=== PATIENT | male | born 1975 | race Caucasian/White ===

== ENCOUNTER 2025-05-29 09:01 | Emergency (ER) | payer BC, SELFPAY ==
[2025-05-29 09:03] VITALS: BP 160/103
[2025-05-29 10:00] VITALS: BP 143/100
[2025-05-29] MEDS: TORADOL 15 MG IV (10:13)
[2025-05-29] MEDS: NSS 1000 IV (10:13)
[2025-05-29 10:19] VITALS: BMI 26.8
[2025-05-29] MEDS: ZOFRAN 4 MG IV (10:23)
--- NOTE | 2025-05-29 10:25 | ED.GENMED ---
History of Present Illness
General
Chief Complaint: Fever
Time Seen by Provider: 05/29/25 09:46
History of Present Illness
History of Present Illness:
49-year-old male with history of primary sclerosing cholangitis and ulcerative colitis on mesalamine presenting to the emergency department for multiple complaints. He reports about a week ago he started to have a left upper tooth pain. He went to
urgent care, was prescribed amoxicillin. 2 evenings ago he did see a dentist, had x-rays that confirmed an infection and was told to follow-up with another dentist. However since yesterday has now been having subjective fevers, nausea, dry
heaving, upper abdominal pain. Reports complex history of primary sclerosing cholangitis, with indwelling liver stent, last replaced a month ago. Notes that he gets a stent replaced every 3 months. Denies known sick contacts. Denies difficulty
breathing or present chest discomfort. Denies diarrhea. He follows at [facility] for hepatology, and [facility] for GI. Denies additional acute medical complaints
Past History
Past History
ED Past Medical History: Other (Ulcerative colitis, primary sclerosing cholangitis) and Other (cholangitis)
ED Past Surgical History: None
Social History
Tobacco: Non-smoker
Alcohol: None
Personal:
Living: with family
Employment: Employed
Phy Exam
Physical Exam
Physical Exam:
General: Well-appearing, no clinical signs of dehydration, nontoxic and in no acute distress
HEENT: protecting airway, mild swelling to the left face, lateral to the teeth. Poor dentition to tooth #15 and 16 with some mild fluctuance at the external gumline and pain on palpation. No trismus.
Neck: appears supple
CV: Normal heart rate, regular rhythm
Resp: No accessory muscle use, no increased work of breathing, lungs clear to auscultation bilaterally
Abd: Soft and non-distended, generalized tenderness to the upper abdomen without rebound or guarding
Extremities: No deformities, no swelling
Neuro: alert, no focal neurologic deficit
: deferred
Rectal: deferred
Psych: Normal affect
Skin: Intact
Course
Orders/Labs/Results
Orders:
Orders
05/29/25 09:04
Electrocardiogram (*1) Urgent
Reason for Study: Chest Pain
EKG- Treatment ONCE
05/29/25 10:08
0.9% Sodium Chloride 1000 ml [Nss] 1,000 ml IV BOLUS
Ketorolac [Toradol] 15 mg IV NOW STA
05/29/25 10:09
CT Abd/pelvis W Iv Cont Urgent
Comment:
Reason For Exam: generalized pain, hx PSC w/gastri stent
05/29/25 10:12
Ondansetron Injectable [Zofran] 4 mg IV NOW STA
05/29/25 10:13
Complete Blood Count/With Diff Urgent
Comprehensive Metabolic Panel Urgent
Lipase Urgent
05/29/25 13:10
Clindamycin HCl [Cleocin] 600 mg PO ONCE ONE
Abnormal Lab Results
05/29/25
10:13
MPV 10.5 H fL
(7.4-10.4)
Absolute Monos (auto) 1.6 H 10^3/uL
(0.1-0.6)
Monocytes % 17.0 H %
(1.7-9.3)
Creatinine 0.6 L mg/dL
(0.7-1.3)
Glucose 121 H mg/dl
(70-99)
Total Bilirubin 2.3 H mg/dl
(0.2-1.3)
AST 82 H U/L
(17-59)
ALT 127 H U/L
(0-50)
Alkaline Phosphatase 563 H U/L
(38-126)
05/29/25 10:13
05/29/25 10:13
Vital Signs
Initial and Last Documented VS:
Initial Vital Signs
Temp Pulse Resp BP Pulse Ox
97.5 F 106 16 160/103 97
05/29/25 09:03 05/29/25 09:03 05/29/25 09:03 05/29/25 09:03 05/29/25 09:03
Last Documented Vital Signs
Temp Pulse Resp BP Pulse Ox
97.5 F 65 15 139/96 92
05/29/25 09:03 05/29/25 11:00 05/29/25 11:00 05/29/25 11:00 05/29/25 11:00
Procedures
Incision/Drainage/Joint Aspiration
L-upper tooth:
Anethesia: 1% Lidocaine
Type of procedure: aspiration
Nature of site: abscess
Description of abscess: less than 3cm
Loculations broken up: Yes
How much fluid was obtained?: small amount
Fluid description: purulent
Treatment: left open for drainage
MDM/Problems Addressed
MDM/Problems Addressed:
49-year-old male with history of primary sclerosing cholangitis and ulcerative colitis on mesalamine presenting for dental pain and abdominal pain. Vital signs on arrival are significant for hypertension.
On exam, patient is resting comfortably, no acute distress, nontoxic. Regarding patient's dental pain, do suspect apical abscess, with swelling to the face, tenderness to tooth #15 and 16 with scant amount of fluctuance on the lateral gumline.
Will try to do local needle aspiration. Otherwise protecting airway, no airway compromise, no oropharyngeal swelling. Patient is currently afebrile. He did not take any Tylenol or Motrin prior to arrival, no antipyretics. Heart rate has resolved
without intervention. Without concern for SIRS. Regarding abdominal discomfort, suspect secondary to underlying dental infection, possibly from amoxicillin. Generalized tenderness to the upper abdomen. Known complex history, so for this reason
we will obtain CT abdomen and pelvis to rule out additional acute pathology. Will also obtain lipase and liver enzymes. Therapeutics patient started on IV fluids, Toradol for pain and Zofran for nausea
13:00 -patient's labs are unremarkable. He does have slight elevation of his AST and ALT, however on review of labs from [facility] on 04/22, appears stable. T. bili is also stable from 04/22. No concern for acute gastric pathology.
CT without acute intra-abdominal abnormality. Continue to suspect the patient symptoms are from ongoing tooth infection. Bedside incision and drainage with success of purulence. Will change patient's antibiotic to clindamycin with plan for
outpatient oral surgical follow-up. Strict return precautions communicated and patient verbalized understanding
*Pulse Oximetry
SaO2: 97
Oxygen Mode of Delivery: Room air
Patient hypoxic: no
*Critical Care Note
Total Time (30-74mins, 75-104mins- exclusive of procedures): Not Applicable
ED Attending Note
-
Portions of this chart may have been created with voice recognition software.� Occasional wrong word or��sound alike� substitutions may have occurred due to the inherent limitations of voice recognition software.
Discharge Plan
Departure
Patient Disposition: Home (Routine Discharge)
Date of Disposition: 05/29/25
Time of Disposition: :11
Patient with high blood pressure during this ER visit?: Yes
Condition: Good
Discharge Problem:
Dental infection, Apical abscess
Instructions: Dental abscess - ED discharge instructions
Prescriptions:
New
clindamycin HCl [Cleocin HCl] 150 mg capsule
450 mg PO TID 7 Days Qty: 63 0RF
tramadol 50 mg tablet
50 mg PO BID PRN (Reason: Pain) Qty: 10 0RF
No Action
ursodiol 300 MG capsule
300 mg PO QPM
ursodiol 300 MG capsule
600 mg PO DAILY
mesalamine 1.2 GM tablet,delayed release (DR/EC)
1.2 gm PO BID
Referrals:
Jesse Baker I., [Family Provider, Internal Medicine]
Geovanny Renner MD, DDS [Active, Oral Surgery]
Activity Restrictions/Additional Instructions:
You were seen in the emergency department for swelling and pain to your left upper tooth
You were found to have a dental infection and started on clindamycin. You will need to follow-up with an oral surgeon for tooth extraction.
Please follow-up closely with your primary care physician.
Return to the emergency department for any worsening of your symptoms, or any development of chest pain, difficulty breathing, abdominal pain with persistent vomiting and inability to tolerate food or liquid by mouth (concern for dehydration),
weakness, headache or confusion, fever greater than 100.4, or any additional symptoms that are concerning to you.
Thank you for choosing [facility].
Interventions
Interventions:
*Risk Screen - Suicide Last Done: 05/29/25 10:24
ED- Neurological Assessment Last Done: 05/29/25 10:24
ED-Skin Assessment Last Done: 05/29/25 10:24
Discharge Date and Time
Print Language: KOREAN
[2025-05-29 10:26] LABS: Hematocrit 43.6 % (39.0-52.0); Hemoglobin 15.8 g/dL (13.0-18.0); Mean Corp Hgb Conc. 36.2 g/dL (33.0-37.0); Mean Corpuscular Volume 83.7 fL (80.0-94.0); Nucleated Red Blood Cells % 0 % (-); Platelet Count 242 10^3/uL (130-400); Red Cell Dist. Width 13.2 % (11.5-14.5)
[2025-05-29 10:41] LABS: ALT (SGPT) 127 U/L (0-50); AST (SGOT) 82 U/L (17-59); Albumin 4.4 g/dl (3.5-5.0); Alkaline Phosphatase 563 U/L (38-126); Blood Urea Nitrogen 11 mg/dl (9-20); Calcium 9.1 mg/dl (8.4-10.2); Carbon Dioxide 27 mmol/L (22-30); Chloride 103 mmol/L (98-107); Estimated Creatinine Clearance > 125 ml/min; Glucose 121 mg/dl (70-99); Lipase 44 U/L (23-300); Potassium 3.7 mmol/L (3.5-5.1); Sodium 138 mmol/L (135-145); Total Protein 7.6 g/dl (6.3-8.2); eGFR > 60.00
[2025-05-29 11:00] VITALS: BP 139/96
[2025-05-29] MEDS: CLEOCIN 600 MG PO (13:25)
== END 2025-05-29 14:00 | disposition home or self-care (01) ==
LOC: EMR 09:01
PROVIDERS: EMERGENCY PHYSICIAN Student in an Organized Health Care Education/Training Program; FAMILY PHYSICIAN Internal Medicine
DX: K04.7 Periapical abscess without sinus (principal); I10 Essential (primary) hypertension; K83.01 Primary sclerosing cholangitis; K51.90 Ulcerative colitis, unspecified, without complications
CPT/HCPCS: 99284; 41800; 96374; 96375; 96361; 74177; 80053; 83690; 85025; 93005; Q9967

== ENCOUNTER 2025-05-31 11:51 | Inpatient (IN) | payer BC, SELFPAY ==
[2025-05-31] VITALS (12 sets, daily range): BP systolic 136–165; BP diastolic 83–111; BMI 27.4; BMI 26.3; BMI 26.5
--- NOTE | 2025-05-31 05:52 | ED.GENMED ---
History of Present Illness
General
Chief Complaint: Abdominal Symptoms
Time Seen by Provider: 05/31/25 05:52
History of Present Illness
History of Present Illness:
PAST MEDICAL HISTORY AND REVIEW OF OLD RECORDS
- The patient has a history of primary sclerosing cholangitis and ulcerative colitis. He was seen here 2 days ago with multiple complaints including dental pain as well as abdominal pain. The patient was admitted to the hospital in 2019 with a
flare of primary sclerosing cholangitis at that time had a total bili of 9.2. 2 days ago, white count was normal, total bili was down to 2.3 and alk phos was 563 (near baseline). CT from 2 days ago showed no acute abnormality and biliary stent was
noted.
Note:
CHIEF COMPLAINT(S)
Acute abdominal pain and persistent vomiting.
HISTORY OF PRESENT ILLNESS
The patient is a 49-year-old male with a history of ulcerative colitis and primary sclerosing cholangitis, presenting with severe abdominal pain and persistent vomiting for the past 12 hours. The patient reports vomiting every 35 to 40 minutes. He
mentions being on antibiotics for a toothache but indicates the symptoms began after starting this medication. No marijuana use was reported. The symptoms are reminiscent of a similar incident from a 2019 hospital admission. The patient recently had
a computed tomography scan of the abdomen, but he is unsure of the results. He feels worse than on a previous visit a few days ago. Additionally, the patient is experiencing hiccups, a new symptom that has persisted throughout the night, resulting
in significant sleep disturbance. There was a prescription for ondansetron for nausea and vomiting, which the patient has not taken. The patient reports improvement in the dental pain but continues to experience some discomfort in that area. He
states he gets ERCP exchanges every 3 months.
EXTERNAL RECORDS REVIEWED
The patient mentions having been admitted previously in 2019, and recent records including a computed tomography scan done recently have been referenced. Further review of records is to be conducted.
PHYSICAL EXAM
General: Alert, appears uncomfortable, ongoing ups noted
Skin: Warm, dry, no jaundice noted.
Head: Normocephalic, atraumatic.
Neck: Supple, trachea midline.
Eye, ears, nose, mouth and throat: Oral mucosa moist.
Cardiovascular: Normal peripheral perfusion, No edema.
Respiratory: Respirations are non-labored.
Gastrointestinal: Moderate upper abdominal tenderness, milder more diffuse tenderness
Back: Normal range of motion, Normal alignment.
Musculoskeletal: Normal ROM, normal strength.
Neurological: Alert and oriented to person, place, time, and situation, No focal neurological deficit observed.
Psychiatric: Cooperative, appropriate mood & affect.
PLAN
The plan includes obtaining blood work to assess liver function and provide intravenous fluids. The patient will receive medication for nausea. Consideration of chlorpromazine for hiccups. Review records in detail to verify recent diagnostics and
treatment. Provide analgesics for the abdominal pain.
DIFFERENTIAL DIAGNOSIS
The Differential Diagnosis includes, in no particular order and is not limited to:
1. Acute pancreatitis
2. Exacerbation of ulcerative colitis
3. Hepatic dysfunction due to primary sclerosing cholangitis
4. Gastroenteritis
5. Small bowel obstruction
6. Peptic ulcer disease
7. Antibiotic-associated gastrointestinal disturbance
8. Gallbladder disease
9. Gastric ulcers
10. Dental infection leading to referred abdominal symptoms
RADIOLOGY
- Given patient's history along with worsening symptoms, upper abdominal ultrasound obtained.
LABS
- White count and hemoglobin are both normal, total bili near baseline, alk phos 581 also near baseline. Transaminases overall improved compared to 2019.
UPDATE
- As of 6:40 AM, pain persisting, giving additional dose of Dilaudid. Thorazine was given for the hiccups and he was given 2 rounds of Dilaudid. He was also given IV fluids as he reports poor p.o. intake. He was also given Zofran and Pepcid.
SUMMARY OF ENCOUNTER
The patient was seen in the emergency department due to persistent severe abdominal pain and vomiting. Initial management included a review of recent diagnostics, administration of intravenous fluids, and consideration of antiemetic medication. A
computed tomography (CT) scan showed a new splenic infarct, and the decision was made to consult with hematology for further management. Microfilm Operator Dr. Perez recommended heparinization for treatment. An echocardiogram was also ordered by
internal medicine to further investigate the patients condition.
DISPOSITION
Admission to the hospital.
ASSESSMENT
The patient has ongoing symptoms of severe abdominal pain and vomiting, with new findings of a splenic infarct. This requires further inpatient evaluation and management.
MANAGEMENT OF THE PATIENTS CARE WAS DISCUSSED WITH
Consultation was held with Dr. Perez from hematology regarding the findings on the CT scan, leading to the decision for heparinization.
PLAN
The plan includes continued evaluation and management in the hospital setting, initiation of heparinization as recommended by hematology, and an echocardiogram to assess cardiac function.
MEDICAL DECISION MAKING
-Chronic conditions affecting care: Ulcerative colitis, primary sclerosing cholangitis, history of abdominal pain and vomiting.
-Differential Diagnosis: Acute pancreatitis, exacerbation of ulcerative colitis, hepatic dysfunction due to primary sclerosing cholangitis, gastroenteritis, small bowel obstruction, peptic ulcer disease, antibiotic-associated gastrointestinal
disturbance, gallbladder disease, gastric ulcers, dental infection leading to referred abdominal symptoms.
-Data:
-Category 1: Test reviewed - Recent CT scan showing new infarct; echocardiogram ordered.
-Category 3: Discussion of management with Dr. Perez, a signaler, resulting in the decision for heparinization therapy.
DIAGNOSIS
Intractable abdominal pain
Splenic infarct
Past History
Past History
ED Past Medical History: Other (Ulcerative colitis, primary sclerosing cholangitis) and Other (cholangitis)
ED Past Surgical History: None
Social History
Tobacco: Non-smoker
Alcohol: None
Personal:
Living: with family
Employment: Employed
Phy Exam
Physical Exam
Physical Exam:
See HPI
Course
Orders/Labs/Results
Orders:
Orders
05/31/25 05:58
Complete Blood Count/With Diff Urgent
Comprehensive Metabolic Panel Urgent
Lipase Urgent
05/31/25 05:59
0.9% Sodium Chloride 1000 ml [Nss] 1,000 ml IV BOLUS
05/31/25 06:00
HYDROmorphone [Dilaudid] 1 mg IV NOW STA
Ondansetron Injectable [Zofran] 4 mg IV NOW STA
05/31/25 06:03
Famotidine [Pepcid] 20 mg IV NOW STA
05/31/25 06:06
ChlorproMAZINE [Thorazine] 25 mg 0.9% Sodium Chloride 50 ml [Nss] 50 ml IV NOW
05/31/25 06:09
US Abdomen Complete/Upper Urgent
Comment:
Reason For Exam: upper pain; h/o PSC
05/31/25 06:48
HYDROmorphone [Dilaudid] 1 mg IV NOW STA
05/31/25 06:58
0.9% Sodium Chloride 1000 ml [Nss] 1,000 ml IV BOLUS
05/31/25 08:52
CT Abd/pelvis W Iv Cont Urgent
Comment:
Reason For Exam: eval biliary stent (not seen on US)
05/31/25 10:54
Echo 2D MMode Color/Doppler Routine
Reason for Study: splenic infarct
05/31/25 11:00
Blood Culture Q30M
LEYLA Source: Blood/Venous
Specimen Description:
05/31/25 11:16
Lactated Ringers [Lr] 1,000 ml IV BOLUS
05/31/25 11:19
PTT Urgent
Comment: Obtain baseline before beginning heparin infusion if not already collected
Heparin Protocol- PTT Orders As Directed
PTT per Heparin protocol: -Obtain CBC and baseline PTT - if not already collected.
-Obtain PTT 6 hours from start of infusion. Then, every 6 hours until 2 consecutive
PTT's are therapeutic. Then, PTT Daily.
-With each rate change, obtain PTT every 6 hours until 2 consecutive PTT's are
therapeutic. Then, PTT Daily.
Notify MD As Directed
Notify physician if: PTT is greater than or equal to 200.
05/31/25 11:21
HEMATOLOGY CONSULT Routine
Consulting Provider: Roshni Perez
Was physician already notified: Yes
Reason for consult: splenic infarct
05/31/25 11:23
Heparin 6,500 units IV PRN PRN
05/31/25 11:24
Admit/Transfer Patient As Directed
Co-Sign Provider:
Level of Care: Inpatient admission
Assign to:: Telemetry
Physician / Group: Nivia
Diagnosis: Splenic infarct
Reason for Telemetry: Arrhythmia
Date to Stop Telemetry: 06/03/25
Time to Stop Telemetry: 11:00
Reason for Hospitalization: Splenic infarct
Expected length of stay greater than two midnights?: Yes
ELOS- Estimated Length of Stay in days: 3
I certify the patient meets the requirements for IP care: Yes
Heparin 3,300 units IV PRN PRN
PRN Pain Medication Management As Directed
May give lesser potent ordered pain med per pt: Yes
preference::
Protocol:: Medication orders for pain may be administered in a
manner that supports deferring to patient preference
when the pt is:
- Requesting an ordered lesser potent pain medication.
Least to most potent pain medications are defined
as: acetaminophen < NSAID < tramadol < opioids
(morphine, oxycodone, hydromorphone).
- Requesting a lesser dose of the same medication IF
ORDERED.
- Requesting a less intrusive route of administration
if both routes are prescribed by the provider (PO <
IV).
05/31/25 11:26
Code Status As Directed
Resuscitation Status: Full Code
05/31/25 11:30
Blood Culture Q30M
LEYLA Source: Blood/Venous
Specimen Description:
Heparin 22208 Units/250 ml 25,000 units in 250 ml IV PER PROTOCOL
Weight to be used for heparin protocol in kilograms (kg):: 81.6
Protocol:: DVT/PE
PTT Goal Range to be used:: PTT 73 to 111 seconds
Order type:: Initial
INITIAL Infusion Dose (UNITS/KG/hr) & then follow protocol:: 18 units/kg/hr
Infusion Dose in UNITS/hr & then follow protocol (UNITS/hr):: 1,500
INFUSION RATE in mL/hr & then follow protocol (mL/hr):: 15
For DVT/PE algorithm, re-bolus for low PTT?: Yes
PTT less than or equal to 64 seconds:: Re-bolus 80 units/kg (max 10,000units). Increase by 300 units/hr
(+ 3mL/hr)
PTT 64.1 to 72.9 seconds:: Re-bolus 40 units/kg (max 5,000 units). Increase by 200 units/hr
(+ 2mL/hr)
PTT 73 to 111 seconds:: Target Range. No change in rate.
PTT 111.1 to 130.9 seconds:: Decrease rate by 200 units/hr (- 2 mL/hr)
PTT 131 to 199.9 seconds:: HOLD for 1 hr. Then decrease by 200 units/hr (- 2mL/hr)
PTT greater than or equal to 200 seconds:: HOLD for 2 hrs & Notify Provider. Then decrease by 300 units/hr
(- 3mL/hr)
Lab follow-up:: Each change, PTT q6h until 2 consecutive are therapeutic. Then
PTT daily.
05/31/25 12:00
Flush (0.9% Sodium Chloride) [Flush (Nss)] See Dose Instructions IV PER PROTOCOL
Lactated Ringers [Lr] 1,000 ml IV 100 mls/hr
06/02/25 06:00
Complete Blood Count/No Diff Q2D
Comment: Notify if platelet count is <130,000 or decreases by 50% from baseline
06/03/25 11:00
DC Protocol for Telemetry ONCE
06/04/25 06:00
Complete Blood Count/No Diff Q2D
Comment: Notify MD if platelet count is <130,000 or decreases by 50% from baseline
06/06/25 06:00
Complete Blood Count/No Diff Q2D
Comment: Notify MD if platelet count is <130,000 or decreases by 50% from baseline
06/08/25 06:00
Complete Blood Count/No Diff Q2D
Comment: Notify MD if platelet count is <130,000 or decreases by 50% from baseline
06/10/25 06:00
Complete Blood Count/No Diff Q2D
Comment: Notify MD if platelet count is <130,000 or decreases by 50% from baseline
06/12/25 06:00
Complete Blood Count/No Diff Q2D
Comment: Notify MD if platelet count is <130,000 or decreases by 50% from baseline
06/14/25 06:00
Complete Blood Count/No Diff Q2D
Comment: Notify MD if platelet count is <130,000 or decreases by 50% from baseline
06/16/25 06:00
Complete Blood Count/No Diff Q2D
Comment: Notify MD if platelet count is <130,000 or decreases by 50% from baseline
Abnormal Lab Results
05/31/25
05:58
MPV 10.9 H fL
(7.4-10.4)
Abs Immat Gran (auto) 0.1 H 10^3/uL
(0-0.05)
Absolute Neuts (auto) 8.2 H 10^3/uL
(1.4-6.5)
Absolute Lymphs (auto) 1.0 L 10^3/uL
(1.2-3.4)
Immature Gran % 0.6 H %
(0-0.5)
Neutrophils % 83.6 H %
(42.2-75.2)
Lymphocytes % 10.6 L %
(20.5-51.1)
Creatinine 0.5 L mg/dL
(0.7-1.3)
Glucose 168 H mg/dl
(70-99)
Total Bilirubin 3.2 H mg/dl
(0.2-1.3)
AST 88 H U/L
(17-59)
ALT 138 H U/L
(0-50)
Alkaline Phosphatase 581 H U/L
(38-126)
05/31/25 05:58
05/31/25 05:58
Vital Signs
Initial and Last Documented VS:
Initial Vital Signs
Temp Pulse Resp BP Pulse Ox
37.1 C 104 16 161/111 97
05/31/25 05:26 05/31/25 05:26 05/31/25 05:26 05/31/25 05:26 05/31/25 05:26
Last Documented Vital Signs
Temp Pulse Resp BP Pulse Ox
37.1 C 79 37 164/101 95
05/31/25 05:26 05/31/25 11:00 05/31/25 11:00 05/31/25 10:36 05/31/25 06:48
*Pulse Oximetry
SaO2: 97
Patient hypoxic: no
*Critical Care Note
Total Time (30-74mins, 75-104mins- exclusive of procedures): Not Applicable
ED Attending Note
-
Portions of this chart may have been created with voice recognition software.� Occasional wrong word or��sound alike� substitutions may have occurred due to the inherent limitations of voice recognition software.
Discharge Plan
Departure
Patient Disposition: Admit
Date of Disposition: 05/31/25
Time of Disposition: 11:00
Presentation/result/management discussed w/ accepting MD/DO: Hospitalist
Patient with high blood pressure during this ER visit?: Yes
Discharge Problem:
Abdominal pain
Prescriptions:
No Action
ursodiol 300 MG capsule
300 mg PO BID
mesalamine 1.2 GM tablet,delayed release (DR/EC)
1.2 gm PO BID
naltrexone 50 mg Tablet
50 mg PO DAILY
ondansetron HCl [Zofran] 4 mg Tablet
4 mg PO Q8HPRN PRN (Reason: nausea)
amlodipine 5 mg Tablet
5 mg PO DAILY
amoxicillin-pot clavulanate [Augmentin] 875-125 mg Tablet
1 tab PO BID
Rx Instructions:
for 10 days starting 05/24/25
Referrals:
Jesse Baker DO [Family Provider, Internal Medicine]
Interventions
Interventions:
*Risk Screen - Suicide Last Done: 05/31/25 05:26
*General Assessment Last Done: 05/31/25 06:42
*Neglect/Abuse Screening Last Done: 05/31/25 07:00
*ED- Fall Risk Assessment Last Done: 05/31/25 06:42
*ED COVID-19 Vaccine History Last Done: 05/31/25 06:42
KU-Ltcuwk-Showyvdroq Assessment Last Done: 05/31/25 08:00
Discharge Date and Time
Print Language: ICELANDIC
[2025-05-31] MEDS: NSS 1000 IV ×2 (06:00→08:16)
[2025-05-31] MEDS: DILAUDID 1 MG IV ×4 (06:13→23:41)
[2025-05-31] MEDS: ZOFRAN 4 MG IV (06:13)
[2025-05-31 06:16] LABS: Hematocrit 43.1 % (39.0-52.0); Hemoglobin 15.6 g/dL (13.0-18.0); Mean Corp Hgb Conc. 36.2 g/dL (33.0-37.0); Mean Corpuscular Volume 85.0 fL (80.0-94.0); Nucleated Red Blood Cells % 0 % (-); Platelet Count 293 10^3/uL (130-400); Red Cell Dist. Width 13.1 % (11.5-14.5)
[2025-05-31] MEDS: PEPCID 20 MG IV (06:20)
[2025-05-31] MEDS: THORAZINE 51 MG IV (06:35)
[2025-05-31 06:40] LABS: ALT (SGPT) 138 U/L (0-50); AST (SGOT) 88 U/L (17-59); Albumin 4.6 g/dl (3.5-5.0); Alkaline Phosphatase 581 U/L (38-126); Blood Urea Nitrogen 17 mg/dl (9-20); Calcium 9.9 mg/dl (8.4-10.2); Carbon Dioxide 25 mmol/L (22-30); Chloride 105 mmol/L (98-107); Estimated Creatinine Clearance > 125 ml/min; Glucose 168 mg/dl (70-99); Lipase 56 U/L (23-300); Potassium 3.9 mmol/L (3.5-5.1); Sodium 141 mmol/L (135-145); Total Protein 8.1 g/dl (6.3-8.2); eGFR > 60.00
--- NOTE | 2025-05-31 11:31 | HPS.HSE ---
Family Physician
-
Family Physician: Jesse Baker
Chief Complaint
-
abd pain, nausea, vomiting
History of Present Illness
49yo M with PSC, UC, HTN, biliary stent came with worsening nausea, vomiting, inability to keep food down for 2 days. HE was seen in ED 3 days ago for infected L maxillar tooth and had some liquid drained from what it seemed to be periodontal
abscess. Initially started on Augmentin, but later switched to Clinda. Now tooth ache much relieved, but started to have hiccups and worsening abd symptoms. CT abd repeated and showed well positioned stent, transaminitis is on baseline as well as no
significant bilirubin elevation above prior judson, however new interval development of splenic infarct.
Medical History
Past Medical History
Past Medical History: Reports Other
Additional Past Medical History:
See HPI
Past Surgical History: Reports None
Social History
Tobacco: Non-smoker
Alcohol: None
Drug: None
Family History
Family History: Not pertinent
Allergies / Home Medications
Allergies reflects when Allergies were last updated in [facility].
Home Medications with original date entered in [facility]
Allergy/Medication List:
Allergies
Allergy/AdvReac Type Severity Reaction Status Date / Time
No Known Allergies Allergy Verified 05/31/25 05:26
Home Medications
ursodiol 300 mg capsule 300 mg PO BID 03/24/15
mesalamine 1.2 gram tablet,delayed release 1.2 gm PO BID 12/21/18
amlodipine 5 mg tablet 5 mg PO DAILY 05/31/25
amoxicillin 875 mg-potassium clavulanate 125 mg tablet 1 tab PO BID 05/31/25
naltrexone 50 mg tablet 50 mg PO DAILY 05/31/25
ondansetron HCl 4 mg tablet 4 mg PO Q8HPRN PRN nausea 05/31/25
Review of Systems
-
History Source: Patient
A 12 point ROS was completed and negative except as noted: Yes
Abdomen/GI: Reports See HPI
Physical Exam
Vital Signs
Vital Signs
Temp Pulse Resp BP Pulse Ox
98.8 F 79 37 164/101 95
05/31/25 05:26 05/31/25 11:00 05/31/25 11:00 05/31/25 10:36 05/31/25 06:48
Physical Exam
General: No Apparent Distress
HEENT: NormoCephalic
Respiratory: Clear; No Wheezes or Crackles
Cardiac: S1/S2, Regular Rhythm and Tachycardia
GI: Soft, Non Distended and Tender
Musculoskeletal: No Clubbing, No Cyanosis and No Edema
Skin: Warm and Dry; No Jaundice
Neuro: Awake, Alert, Oriented and AO x 3
Psych: Calm
Laboratory Results
-
05/31/25 05:58
05/31/25 05:58
Laboratory Results
Total Bilirubin 3.2 mg/dl (0.2-1.3) H 05/31/25 05:58
AST 88 U/L (17-59) H 05/31/25 05:58
ALT 138 U/L (0-50) H 05/31/25 05:58
Alkaline Phosphatase 581 U/L (38-126) H 05/31/25 05:58
Lipase 56 U/L (23-300) 05/31/25 05:58
Data Reviewed
-
CT Scan: Report Reviewed by me
Lab Data: Labs Reviewed by me
Impression/Plan
-
A/P:
#Nausea, vomiting, abdominal pain and LUQ tenderness most likely 2/2 splenic infarct
Patient has a risk factor of UC
Will re-discuss with radiology if any portal/splenic thrombosis seen, meanwhile start heparin drip pending Hematology consult. Might need portal doppler
Pain mgmt,. Zofran
Advance diet as tolerated
With recent tooth infection and fever: check Bcx,
Echo, cont telemetry to exclude cardioembolic source
Hold Abx until further results
Lipase WNL
#Transaminitis on baseline
#Bilirubinemia on baseline
#Elevated alk.phos chronic
#UC not in flare
#PSC
Patietn declining any recent UC flare
followed by GI in [place] and Hepatology in [facility]
cont follow up upon d/c
#Tooth infection
Outpatient MFS advised
DVT ppx hep drip
Full code
I have spent at least 78min reviewing chart, test results, communication with consultants and providing direct patient care
[2025-05-31] MEDS: LR 1000 IV ×3 (11:53→22:35)
[2025-05-31] MEDS: HEPARIN 25000 UNITS/250 ML IV (12:00)
[2025-05-31 12:09] LABS: APTT 29.5 Sec (23.4-35.0)
[2025-05-31 13:49] LABS: C-Reactive Protein 31.10 mg/L (0.0-10.00)
--- NOTE | 2025-05-31 14:24 | EDRN ---
Patient taken to room 437-1 on stretcher with Heparin drip infusing at 1400 units/HR and LR infusing at 100 mL/HR.
--- NOTE | 2025-05-31 16:04 | CON.ONC ---
Consultation
-
Date Consultation Requested: 05/31/25
Date Consultation Performed: 05/31/25
Requesting Provider: Devante Gonzáles MD
Performing Provider: Roshni Perez MD
Reason for Consultation: splenic infarct
Impression
Impression
abdominal pain, first seen in ER 05/29 w/ unremarkable CT A/P. ER eval on 05/31 now with splenic infarct and inflammatory findings at the celiac artery
PSC, w/ q3mo stent exchanges
UC (patient of Dr. Eliana Hollins)
Tooth infection, on augmentin
Plan
Plan
UC and PSC are risk factors for thrombosis
Heparin drip, transition to DOAC when clinically improved and tolerating po diet
Would ask GI to evaluate in light of PSC, UC, ?celiac arteritis, and abdominal pain that preceded splenic infarct - d/w hospitalist
Duration of a/c TBD, may benefit from ongoing ppx dosing after initial 3-6mo treatment
Tooth extraction timing TBD while on a/c.
Patient History
History of Present Illness
This is a 49 yo M w/ h/o UC and PSC with stent, patient of Dr. Eliana Hollins, who was in the ER on 05/29 with fever, nausea and upper abdominal pain. He'd started on abx on 05/27 for a tooth infection. CT on 05/29 showed no acute intra abdominal
process. He was sent home, but pain worsened, along w/ N/V. He returned to the ER today, and repeat CT scan now shows a splenic infarct, with no portal vein or splenic vein thrombosis. There is mild distension of the celiac artery with findings
suggesting inflammation or vasculitis. No thrombosis/thrombus.
He's been started on heparin and pain meds. His tooth pain is improving. No personal or family h/o VTE.
He has chronic LFT elevations, stable. CRP is high at 31.10. Lipase is normal.
Past-Medical/Surgical History
PMH - as above, also noted for h/o pancreatitis
SH - non smoker, no alcohol
FH - n/c
Patient Medication
�Medication �Instructions �Recorded �Confirmed �Last Taken �Type
ursodiol 300 mg capsule 300 mg PO BID 03/24/15 05/31/25 03/23/15 History
mesalamine 1.2 gram tablet,delayed 1.2 gm PO BID 12/21/18 05/31/25 Unknown History
release
amlodipine 5 mg tablet 5 mg PO DAILY 05/31/25 05/31/25 Unknown History
amoxicillin 875 mg-potassium 1 tab PO BID 05/31/25 05/31/25 Unknown History
clavulanate 125 mg tablet
naltrexone 50 mg tablet 50 mg PO DAILY 05/31/25 05/31/25 Unknown History
ondansetron HCl 4 mg tablet 4 mg PO Q8HPRN PRN nausea 05/31/25 05/31/25 Unknown History
Active Medications
Generic Name Dose Route Start Last Admin
Trade Name Freq PRN Reason Stop Dose Admin
Acetaminophen 650 mg 05/31/25 13:44
Acetaminophen 325 Mg Tablet PO 06/28/25 13:43
Q4HPRN PRN
mild pain/SYLVESTER/temp> 100.4F
Amlodipine Besylate 5 mg 06/01/25 08:00
Amlodipine 5 Mg Tablet PO 06/29/25 07:59
DAILY FADI
Bisacodyl 10 mg 05/31/25 13:44
Bisacodyl 10 Mg Rectal Suppository RECTAL 06/28/25 13:43
[id number] PRN
constipation
Heparin Sodium 6,300 units 05/31/25 11:55
Heparin 80 Units/Kg Iv Rebolus IV 06/28/25 11:22
PRN PRN
PTT < OR = 64 seconds
Heparin Sodium 3,100 units 05/31/25 11:55
Heparin 40 Units/Kg Iv Rebolus IV 06/28/25 11:23
PRN PRN
PTT = 64.1 to 72.9 seconds
Hydromorphone HCl 1 mg 05/31/25 13:44 05/31/25 15:10
Hydromorphone 1 Mg/Ml Carpuject IV 06/14/25 13:43 1 mg
Q3HPRN PRN Administration
severe pain
Hydromorphone HCl 0.5 mg 05/31/25 13:44
Hydromorphone 0.5 Mg/0.5 Ml Syringe IV 06/14/25 13:43
Q4HPRN PRN
moderate pain
Lactated Ringer's 1,000 mls @ 100 mls/hr 05/31/25 12:00 05/31/25 11:58
Lr IV 1,000 mls
.Q10H FADI Administration
Heparin Sodium 25,000 units in 250 mls @ 0 mls/hr 05/31/25 11:30 05/31/25 12:00
Heparin 97791 Units/250 Ml IV 250 mls
PER PROTOCOL FADI Administration
Protocol
Per Protocol
Mesalamine 1,200 mg 05/31/25 20:00
Mesalamine 400 Mg Delayed Release Capsule PO 06/28/25 19:59
BID FADI
Ondansetron HCl 4 mg 05/31/25 14:00
Ondansetron 4 Mg Tablet PO 06/28/25 13:59
Q8HPRN PRN
nausea
Ondansetron HCl 4 mg 05/31/25 13:44
Ondansetron 4 Mg/2 Ml Vial IV 06/28/25 13:43
Q8HPRN PRN
nausea and vomiting
Polyethylene Glycol 17 grams 05/31/25 13:44
Polyethylene Glycol Powder 17 Grams Packet PO 06/28/25 13:43
DAILYPRN PRN
constipation
Senna/Docusate Sodium 1 tablet 05/31/25 13:44
Docusate W/Senna (Madeline-Colace) Tablet PO 06/28/25 13:43
BIDPRN PRN
constipation
Sodium Chloride 0 flush 05/31/25 12:00
Sodium Chloride 0.9% (Flush) Syringe IV 06/28/25 11:59
PER PROTOCOL FADI
Ursodiol 300 mg 05/31/25 20:00
Ursodiol 300 Mg Capsule PO 06/28/25 19:59
BID AFDI
Review of Systems
-
All Other Systems: Not reviewed unless documented
Physical Exam
-
General: Well Developed, Well Nourished and Conversant; Negative Comfortable
HEENT: Jaundice
GI: Other (tender in mid/upper abdomen)
Neurology: Non Focal
Skin: Warm and Dry
Psych: Calm and Intact Judgement/Insight
Labs
Lab Results
WBC 9.8 10^3/uL (4.8-10.8) 05/31/25 05:58
RBC 5.07 10^6/uL (4.70-6.10) 05/31/25 05:58
Hgb 15.6 g/dL (13.0-18.0) 05/31/25 05:58
Hct 43.1 % (39.0-52.0) 05/31/25 05:58
MCV 85.0 fL (80.0-94.0) 05/31/25 05:58
MCH 30.8 pg (27.0-31.0) 05/31/25 05:58
MCHC 36.2 g/dL (33.0-37.0) 05/31/25 05:58
RDW 13.1 % (11.5-14.5) 05/31/25 05:58
Plt Count 293 10^3/uL (130-400) D 05/31/25 05:58
MPV 10.9 fL (7.4-10.4) H 05/31/25 05:58
Abs Immat Gran (auto) 0.1 10^3/uL (0-0.05) H 05/31/25 05:58
Absolute Neuts (auto) 8.2 10^3/uL (1.4-6.5) H 05/31/25 05:58
Absolute Lymphs (auto) 1.0 10^3/uL (1.2-3.4) L 05/31/25 05:58
Absolute Monos (auto) 0.5 10^3/uL (0.1-0.6) 05/31/25 05:58
Absolute Eos (auto) 0.0 10^3/uL (0-0.7) 05/31/25 05:58
Absolute Basos (auto) 0.0 10^3/uL (0-0.2) 05/31/25 05:58
Immature Gran % 0.6 % (0-0.5) H 05/31/25 05:58
Neutrophils % 83.6 % (42.2-75.2) H 05/31/25 05:58
Lymphocytes % 10.6 % (20.5-51.1) L 05/31/25 05:58
Monocytes % 5.1 % (1.7-9.3) 05/31/25 05:58
Eosinophils % 0.0 % (0-6) 05/31/25 05:58
Basophils % 0.1 % (0-2) 05/31/25 05:58
Creatinine 0.5 mg/dL (0.7-1.3) L 05/31/25 05:58
Vital Signs
Vital Signs
Temp Pulse Resp BP Pulse Ox
98.7 F 84 16 156/95 97
05/31/25 13:50 05/31/25 13:50 05/31/25 13:50 05/31/25 13:50 05/31/25 13:50
[2025-05-31 18:29] LABS: APTT 67.3 Sec (23.4-35.0)
[2025-05-31] MEDS: HEPARIN 3100 UNITS IV (19:13)
[2025-05-31] MEDS: ZOFRAN 4 MG PO (19:57)
[2025-05-31] MEDS: ASACOL, DELZICOL DR 1200 MG PO (19:57)
[2025-05-31] MEDS: ACTIGALL 300 MG PO (19:57)
[2025-06-01 02:30] LABS: APTT 87.4 Sec (23.4-35.0)
--- NOTE | 2025-06-01 03:15 | DOWNTIME ---
There was a [employer] Downtime on 06/01/2025 from 0100 to 06/01/2025 at 0235. Downtime documentation of patient's care, including medication administrations, has been reconciled in the electronic record per guidelines. Refer to the
patient's paper chart under the miscellaneous tab to see printed paper medication records and downtime forms.
[2025-06-01] MEDS: HEPARIN 25000 UNITS/250 ML IV ×2 (03:20→19:02)
[2025-06-01 03:43] VITALS: BP 146/94
[2025-06-01 07:00] VITALS: BP 158/98
[2025-06-01] MEDS: LR 1000 IV (08:31)
[2025-06-01] MEDS: ASACOL, DELZICOL DR 1200 MG PO ×2 (08:40→21:01)
[2025-06-01] MEDS: ACTIGALL 300 MG PO ×2 (08:41→21:00)
[2025-06-01] MEDS: NORVASC 5 MG PO (08:41)
--- NOTE | 2025-06-01 09:27 | CON.GI ---
Addendum entered and electronically signed by Yumiko Zheng Do, MD 06/01/25 14:02:
I saw and examined the patient.
The TECHNOLOGY DEVELOPMENT INTERN's note was reviewed and I agree with the note.
Comment: Harvinder is a 49yo M with h/o UC diagnosed in his teens on mesalamine and PSC with frequent biliary stent exchanges last 04/2025 who presents for acute abd pain and NV. He has all his care at [place] with GI Dr Shepherd and Radha Hanna. Recent
abx use amox and clindamycin for tooth infection. Then awoken with significant epigastric abd pain with nausea/vomiting. He denies odynophagia, dysphagia, diarrhea, constipation, blood in stools or wt loss. He denies jaundice or itching. Vitals
stable exam obese abd NTTP, NABS. Labs reviewed elevated LFTs noted. CTAP IV contrast shows biliary stent without biliary dilation and signs suggestive of vasculitis and splenic infarct. No SVT or PVT seen
Impression
- Acute abd pain with splenic infarct seen on imaging
Unclear etiology but is associated with inflammatory states
Normal pancreas without trauma
ECHO neg
- UC
- PSC with chronically elevated LFTs
- h/o biliary obstruction with biliary stent exchanges every 3mo last 04/2025 ([place])
- BPH
- HL
- HTN
Recommendations
- Tolerating regular diet for lunch
- Denies diarrhea
- C/w mesalamine. He has OP Colonoscopy scheduled at [place] with Pamela Cruz
- Trend LFTs
- Thus far biliary stent appears in good position without CBD dilation
- BC thus far pending
- At this juncture no further inpatient GI workup indicated. He has close FU with Dr Shepherd and Pamela Cruz at [place] already
GI will follow peripherally please call for ?
Addendum entered and electronically signed by KASIA Montenegro 06/01/25 12:08:
meld 3.0 13 with INR 1.04
Original Note:
Consultation
-
Date/Time Consultation Requested: 06/01/25 0700
Date/Time Consultation Performed: 06/01/25929
Requesting Provider: Devante Gonzáles MD
Performing Provider: KASIA Jasmine, Yumiko Kelley MD
Reason for Consultation: abnormal imaging
Medical History
Chief Complaint / HPI
Chief Complaint: abdominal pain
History of Present Illness:
Pt is a 49yo presents with longstanding ulcerative colitis since childhood on chronic Mesalamine with stable bowel habit, PSC with several bouts of prior cholangitis with every 3 month biliary stent exchange with Dr. Shepherd, hepatology follow prior
with Dr. Soriano(on transplant list in past) and now follow with Dr. Kang at [facility] (not on current transplant list as MELD too low) presents with onset of toothache 1 1/2 weeks ago. He was given Amoxicillin at Urgent care then began with abdominal
pain and did change to Clindamycin with minimal use and began with vomiting and inability to eat since Friday. He was in ER with Ct 05/29 with no acute pathology, new biliary stent 2 mm non obstructing left renal stone, hypodense right renal
lesion, benign cyst, mild prostate hypertrophy. He returned with continued pain and limited US and repeat Ct with concern splenic infarct, mild stool burden, possible gallstone or small polyp, fusiform distention of celiac artery, with perivascular
soft tissue stranding concern for non specific vessel inflammatory change/vasculitis
In review with patient he admits to epigastric pain was 9/10 now 5/10 and associated with non bloody emesis. Pain worse with eating and note belching. Better with pain med but only for brief period. He has minimal wt loss without eating but
denies, odynophagia, GERD, blood or black in stools. Bowel habits have been regular without blood. + NSAID use about 6 tablet since last week with tooth pain. labs noted with WBC 13,200, hbg 14-15, glucose 168, bili 3.2, ASt 88, ALT 138, alk phos
581, CRP 31.1, lipase 56, ESR 20.
baseline labs in April bili 2.2, AST 79, ALT 107, alk phos 511
Past Medical History
Past Medical History: HTN, Hypercholesterolemia and Other (ulcerative colitis, PSC, elevated alk phos, HTN, biliary stent with hx cholangitis in past, (liver mass per chart- pt denies) vitamin D deficiency,arthritis, autoimmune disorder, renal
stones)
Social History
Tobacco: Non-Smoker
Alcohol: None
Drug: None
Personal:
Living: With Family
Employment: Employed
Family History
Family History: Other (Negative for colon cancers, colon polyps. There is no family history of ulcerative colitis or Crohn's disease.)
Allergies / Home Medications
Allergy/AdvReac Type Severity Reaction Status Date / Time
No Known Allergies Allergy Verified 05/31/25 05:26
�Medication �Instructions �Recorded
ursodiol 300 mg capsule 300 mg PO BID 03/24/15
mesalamine 1.2 gram tablet,delayed 1.2 gm PO BID 12/21/18
release
amlodipine 5 mg tablet 5 mg PO DAILY 05/31/25
amoxicillin 875 mg-potassium 1 tab PO BID 05/31/25
clavulanate 125 mg tablet
naltrexone 50 mg tablet 50 mg PO DAILY 05/31/25
ondansetron HCl 4 mg tablet 4 mg PO Q8HPRN PRN nausea 05/31/25
Review of Systems
-
History Source: Patient and Family
Constitutional: Reports Fever (last week with tooth issue ) and Weight Loss (few lbs )
EENT: Reports Sore Throat (with vomiting ) and Other (recent tooth infection )
Respiratory: Reports No Symptoms
Cardiac: Reports No Symptoms
Abdomen/GI: Reports Abdominal Pain, Nausea and Vomiting
: Reports No Symptoms
Musculoskeletal: Reports No Symptoms
Skin: Reports No Symptoms
Neurological: Reports Weakness
Endocrine: Reports No Symptoms
Hematologic/Lymphatic: Reports No Symptoms
Vital Signs
Temp Pulse Resp BP Pulse Ox
98.5 F 82 20 158/98 96
06/01/25 07:00 06/01/25 08:41 06/01/25 07:00 06/01/25 08:41 06/01/25 07:00
Physical Exam
Exam
General: Well Developed, Well Nourished, No Apparent Distress and Other (minimal belching with exam )
HEENT: Normocephalic
Respiratory: Clear
Cardiac: Regular Rhythm
GI: Soft, Non Distended and Tender (mild epigastric pain )
Skin: Warm and Dry
Neuro: Awake, Alert and AO x 3
Psych: Calm
Results
WBC 9.8 10^3/uL (4.8-10.8) 05/31/25 05:58
Hgb 15.6 g/dL (13.0-18.0) 05/31/25 05:58
Hct 43.1 % (39.0-52.0) 05/31/25 05:58
MCV 85.0 fL (80.0-94.0) 05/31/25 05:58
Plt Count 293 10^3/uL (130-400) D 05/31/25 05:58
Absolute Neuts (auto) 8.2 10^3/uL (1.4-6.5) H 05/31/25 05:58
APTT 87.4 Sec (23.4-35.0) H 06/01/25 01:21
Sodium 141 mmol/L (135-145) 05/31/25 05:58
Potassium 3.9 mmol/L (3.5-5.1) 05/31/25 05:58
Chloride 105 mmol/L (98-107) 05/31/25 05:58
Carbon Dioxide 25 mmol/L (22-30) 05/31/25 05:58
BUN 17 mg/dl (9-20) 05/31/25 05:58
Creatinine 0.5 mg/dL (0.7-1.3) L 05/31/25 05:58
Calcium 9.9 mg/dl (8.4-10.2) 05/31/25 05:58
Total Bilirubin 3.2 mg/dl (0.2-1.3) H 05/31/25 05:58
AST 88 U/L (17-59) H 05/31/25 05:58
ALT 138 U/L (0-50) H 05/31/25 05:58
Alkaline Phosphatase 581 U/L (38-126) H 05/31/25 05:58
Lipase 56 U/L (23-300) 05/31/25 05:58
Diagnostic Image Results:
05/29/25 Ct A/p- IV contrast no acute pathology, new biliary stent 2 mm non obstructing left renal stone, hypodense right renal lesion, benign cyst, mild prostate hypertrophy
05/31/25- US abdomen limited large amount of bowel gas stent not visualized
05/31/25- CT a/p- biliary stent in place, development of segmental splenic infarct, no acute inflammatory process in A/p, no bowel obstruction, mild colon fecal burden, no obs uropathy, , ? small GB vs polyps, non obs small lower pole renal calculi
no portal vein thrombus, mild fusiform distention of celiac artery 1 cm from aortic origin, 13 mm transverse. margins indistinct, mild perivascular soft tissue stranding, suspicious for non specific vessel inflammatory changes /vasculitis, -
vasculitis, autoimmune vasculitis, or takayasu arteritis, no focal filling defect to suggest thrombosis.
12/22/18- MR abdomen-
IMPRESSION: Gallbladder is distended. Compared to previous MRI examination of December 09, 2016, interval increase in the degree of intrahepatic bile duct dilation as well as dilation of the common hepatic duct and the superior to midportion of the
common bile duct. 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
Interval increase in degree of dilation of the dilated portions of the bile ducts appears to be due to a focal stricture of the common bile duct 2.3 cm superior to its duodenal insertion site.
Hypertrophy of the lateral segment of the liver with atrophy of the medial and anterior segments. No evidence of a focal hepatic mass lesion. The peripheral hepatic contour is not grossly nodular.
The spleen is mildly enlarged, similar appearance to previous MRI.
Prior GI Procedures:
EGD: pt did not recall
Colonoscopy: last 2 years ago recalls as stable was due this week with Dr. Lopes for follow up
ERCP every 3 months last 04/2025
last report reviewed 07/2024- strictures of bile duct s/p 8.5 fr biliary stent with resolution of puritis and jaundice, PSC
-limited stomach, stent .8.5, georgian in papilla, stent removed, dilatation 5 mm CBD and in left intrahepatic biliary branch, normal extrahepatic bile duct obstruction of right main hepatic duct c/w PSC, strictures and irregularity of all
intrahepatic biliary branches, multiple strictures in left main and lateral hemtic ducts c/w PSC, treated with balloonn dilation, sampled with brushing and treated with stent with neg bx
05/31/25 echo
1. Normal left ventricular size, wall thickness and systolic function. No regional wall motion abnormalities are seen.
2. No significant valvular pathology.
3. No prior study for comparison.
Assessment / Plan
-
Pt is a 49yo presents with longstanding ulcerative colitis since childhood on chronic Mesalamine with stable bowel habit, PSC with several bouts of prior cholangitis with every 3 month biliary stent exchange with Dr. Shpeherd, hepatology follow prior
with Dr. Soriano(on transplant list in past) and now follow with Dr. Kang at [facility] (not on current transplant list as MELD too low) presents with onset of toothache 1 1/2 weeks ago. He was given Amoxicillin at Urgent care then began with abdominal
pain and did change to Clindamycin with minimal use and began with vomiting and inability to eat since Friday. He was in ER with Ct 05/29 with no acute pathology, new biliary stent 2 mm non obstructing left renal stone, hypodense right renal
lesion, benign cyst, mild prostate hypertrophy. He returned with continued pain and limited US and repeat Ct with concern splenic infarct, mild stool burden, possible gallstone or small polyp, fusiform distention of celiac artery, with perivascular
soft tissue stranding concern for non specific vessel inflammatory change/vasculitis.labs noted with WBC 13,200, hbg 14-15, glucose 168, bili 3.2, ASt 88, ALT 138, alk phos 581, CRP 31.1, lipase 56, ESR 20.
baseline labs in April bili 2.2, AST 79, ALT 107, alk phos 511
-abdominal pain with nausea and vomiting
-splenic infarct
-belching ? mild ileus with increased gas on US
-fusiform distention of celiac artery
-hx UC - well controlled on mesalamine
-hx PSC with every 3 month biliary stent changes at [place] and follow at [facility] with chronic LFT elevation on chronic Quan
-recent tooth infection with antibiotic use
-enlarged spleen
PLAN:
etiology of abdominal pain likely splenic infarct
underlying cause of infarct - unclear-- some chronic splenomegaly, chronic liver issue with PSC, UC though seem controlled risk of thrombosis, echo stable, denies trauma, no recent viral infections, no hx prior clots
for heme eval
pt has already been in contact with hepatology to review
heparin gtt with transition to oral therapy
ok for diet some belching monitor for ileus with infarction increased gas on US
trend hbg with new AC
add INR to calculate meld
family updated
-
-
Thank you for consultation and allowing me to participate in the patient's care. Please call the control and recovery combat rescue GI physician during the after hours with any questions or concerns.
[2025-06-01 09:52] LABS: Hematocrit 41.6 % (39.0-52.0); Hemoglobin 14.7 g/dL (13.0-18.0); Mean Corp Hgb Conc. 35.3 g/dL (33.0-37.0); Mean Corpuscular Volume 86.5 fL (80.0-94.0); Nucleated Red Blood Cells % 0 % (-); Platelet Count 306 10^3/uL (130-400); Red Cell Dist. Width 13.3 % (11.5-14.5)
[2025-06-01 10:03] LABS: APTT 90.7 Sec (23.4-35.0)
--- NOTE | 2025-06-01 10:55 | W.PN.HOSP.TC ---
Today's Communication/Plan
-
Pain is improving
advance diet, possible switch to Eliquis @PM if tolerated
GI consult
Start Ceftriaxone/Flagyl
Assessment / Plan
Assessment / Plan
49yo M with PSC, UC, HTN, biliary stent came with worsening nausea, vomiting, inability to keep food down for 2 days. Managed for splenic infarct.
A/P:
#Nausea, vomiting, abdominal pain and LUQ tenderness most likely 2/2 splenic infarct
Patient has a risk factor of UC
Hematology consult: eventual DOAC
Pain mgmt, Zofran
Advance diet as tolerated
With recent tooth infection and fever: check Bcx - NTD
Echo without ignificant valvular pathology
Telemetry with SR
Lipase WNL
#mild fusiform distention of the celiac artery
suspicious for nonspecific vessel inflammatory changes/vasculitis
ESR however WNL
Mildly elevated CRP
No other vascular findings
ANCA Ab and LUKASZ pending
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
#Transaminitis on baseline
#Bilirubinemia on baseline
#Elevated alk.phos chronic
#UC not in flare
#PSC
Patient declining any recent UC flare
followed by GI in [place] and Hepatology in [facility]
cont follow up upon d/c
GI consult
#Tooth infection
#mild leukocytosis
Previously failed after 5 days of Augmentin, but started to improve on Clinda
Reasonable to cont Ceftriaxone+Flagyl to complete 7 days and outpatient outpatient MFS advised
DVT ppx hep drip
Full code
I have spent at least 58min reviewing chart, test results, communication with consultants and providing direct patient care
Anticipated Discharge: 24 - 48 hours
Subjective/Interval History
-
Date of Service: June 01, 2025
Objective Data
-
Labs:
Laboratory Results
06/01/25 06/01/25 06/01/25
01:21 09:38 09:39
WBC 13.2 H
Hgb 14.7
Hct 41.6
Plt Count 306
APTT 87.4 H 90.7 H
Sodium Pending
Potassium Pending
Chloride Pending
Carbon Dioxide Pending
BUN Pending
Creatinine Pending
Glucose Pending
Calcium Pending
Total Bilirubin Pending
AST Pending
ALT Pending
Alkaline Phosphatase Pending
Vital Signs:
Vital Signs
Temp Pulse Resp BP Pulse Ox
98.5 F 82 20 158/98 96
06/01/25 07:00 06/01/25 08:41 06/01/25 07:00 06/01/25 08:41 06/01/25 07:00
I&O
05/31/25 06/01/25 06/02/25
06:59 06:59 06:59
Intake Total 720 / 720
Balance 720 / 720
Review of Systems
-
History Source: Patient
All other systems: Reviewed and negative
Abdomen/GI: Reports Abdominal Pain
Physical Exam
-
General: No Apparent Distress
HEENT: Normocephalic
Cardiac: Regular Rhythm
GI: Soft, Nontender and Nondistended
Musculoskeletal: No Clubbing, No Cyanosis and No Edema
Psych: Calm
[2025-06-01 10:59] LABS: ALT (SGPT) 154 U/L (0-50); AST (SGOT) 101 U/L (17-59); Albumin 3.9 g/dl (3.5-5.0); Alkaline Phosphatase 468 U/L (38-126); Blood Urea Nitrogen 10 mg/dl (9-20); Calcium 9.3 mg/dl (8.4-10.2); Carbon Dioxide 25 mmol/L (22-30); Chloride 100 mmol/L (98-107); Estimated Creatinine Clearance > 125 ml/min; Glucose 120 mg/dl (70-99); Magnesium 2.0 mg/dl (1.6-2.3); Potassium 3.7 mmol/L (3.5-5.1); Sodium 134 mmol/L (135-145); Total Protein 7.1 g/dl (6.3-8.2); eGFR > 60.00
[2025-06-01 11:00] VITALS: BP 171/96
[2025-06-01 11:30] LABS: INR 1.04; PT 14.1 Sec (11.4-14.6)
[2025-06-01] MEDS: VISBIOME 1 CAP PO (13:06)
[2025-06-01] MEDS: ROCEPHIN 2000 MG IV (13:07)
[2025-06-01] MEDS: STERILE WATER FOR INJECTION 20 ML IV (13:08)
[2025-06-01 15:00] VITALS: BP 156/98
--- NOTE | 2025-06-01 15:29 | CM ---
global manager reviewed patient's chart and met with patient and patient lives with with spouse in a split level home, no steps to enter, patient is independent with adl's and ambulation, no dme, home when stable, no needs.
PCP: Dr. Baker
Pharmacy: [facility] [place]
[2025-06-01] MEDS: FLAGYL 500 MG PO ×2 (16:38→23:13)
[2025-06-01] MEDS: MOTRIN 200 MG PO (17:43)
[2025-06-01 20:10] VITALS: BP 153/97
[2025-06-01 23:26] VITALS: BP 164/104
[2025-06-02 03:42] VITALS: BP 167/105
[2025-06-02 07:05] VITALS: BP 156/107
[2025-06-02 07:11] LABS: Glucose - Point of Care 120 mg/dl (70-99)
[2025-06-02] MEDS: DILAUDID 1 MG IV (07:20)
[2025-06-02] MEDS: FLUSH (NSS) 2 FLUSH IV (07:22)
[2025-06-02 07:31] LABS: Hematocrit 43.3 % (39.0-52.0); Hemoglobin 15.2 g/dL (13.0-18.0); Mean Corp Hgb Conc. 35.1 g/dL (33.0-37.0); Mean Corpuscular Volume 85.7 fL (80.0-94.0); Nucleated Red Blood Cells % 0 % (-); Platelet Count 306 10^3/uL (130-400); Red Cell Dist. Width 13.1 % (11.5-14.5)
[2025-06-02 07:33] LABS: APTT 72.2 Sec (23.4-35.0)
--- NOTE | 2025-06-02 07:45 | W.PN.ONC ---
Today's Communication / Plan
-
UC and PSC risk for thrombosis
Continue heparin to DOAC
GI consultation appreciated
Duration of a/c TBD, may benefit from ongoing ppx dosing after initial 3-6mo treatment
Tooth extraction timing TBD while on DOAC
Impression
Impression
Abdominal pain, first seen in ER 05/29 w/ unremarkable CT A/P. ER eval on 05/31 now with splenic infarct and inflammatory findings at the celiac artery
PSC, w/ q3mo stent exchanges
UC
Tooth infection, on augmentin
Subjective/Objective
Subjective/Objective
Patient continues to have left upper quadrant discomfort.
Vital Signs:
Vital Signs
Temp Pulse Resp BP Pulse Ox
99 F 80 16 167/105 97
06/02/25 03:42 06/02/25 03:42 06/02/25 03:42 06/02/25 03:42 06/02/25 03:42
PE: Unchanged
Lab Results:
Laboratory Data
WBC 14.9 10^3/uL (4.8-10.8) H 06/02/25 06:30
Hgb 15.2 g/dL (13.0-18.0) 06/02/25 06:30
Plt Count 306 10^3/uL (130-400) 06/02/25 06:30
PT 14.1 Sec (11.4-14.6) 06/01/25 09:38
INR 1.04 06/01/25 09:38
APTT 72.2 Sec (23.4-35.0) H 06/02/25 06:30
eGFR > 60.00 06/01/25 09:38
[2025-06-02 08:11] LABS: ALT (SGPT) 160 U/L (0-50); AST (SGOT) 99 U/L (17-59); Albumin 4.1 g/dl (3.5-5.0); Alkaline Phosphatase 542 U/L (38-126); Blood Urea Nitrogen 10 mg/dl (9-20); Calcium 9.0 mg/dl (8.4-10.2); Carbon Dioxide 26 mmol/L (22-30); Chloride 100 mmol/L (98-107); Estimated Creatinine Clearance > 125 ml/min; Glucose 115 mg/dl (70-99); Potassium 3.7 mmol/L (3.5-5.1); Sodium 135 mmol/L (135-145); Total Protein 7.2 g/dl (6.3-8.2); eGFR > 60.00
[2025-06-02] MEDS: HEPARIN 3100 UNITS IV (09:46)
[2025-06-02] MEDS: ACTIGALL 300 MG PO (09:57)
[2025-06-02] MEDS: ASACOL, DELZICOL DR 1200 MG PO (09:57)
[2025-06-02] MEDS: FLAGYL 500 MG PO (09:57)
[2025-06-02] MEDS: VISBIOME 1 CAP PO (09:58)
[2025-06-02] MEDS: NORVASC 5 MG PO (09:58)
--- NOTE | 2025-06-02 10:22 | CM ---
trust manager assistant continues to follow with patient progress notes and was asked to check on pricing for Eliquis and Xarelto, both are $16 per month, human services case manager will provide coupons at discharge.
Plan; Home when stable.
--- NOTE | 2025-06-02 10:55 | W.PN.HOSP.TC ---
Today's Communication/Plan
-
dc
Assessment / Plan
Assessment / Plan
49yo M with PSC, UC, HTN, biliary stent came with worsening nausea, vomiting, inability to keep food down for 2 days. Managed for splenic infarct. Also found mild fusiform distention of the celiac artery with perivascular inflammatory changes, that
were discussed with rheumatology and agreed that unlikely 2/2 vasculitis. However referral for rheum to be provided as ANCA, LUKASZ w/u sent. Normal ESR speaking against acute vasculitis. Able to tolerate food without vomiting. Switched to
cefdinir/flagyl to avoid clinda toxicity for tooth infection and patient will se MFS. tooth pain resolved at the day of D/C. Cpopay for ELiquis - $16 as pr CM. Medically stable for d/c
A/P:
#Nausea, vomiting, abdominal pain and LUQ tenderness most likely 2/2 splenic infarct
Patient has a risk factor of UC
Hematology consult: eventual DOAC
Pain mgmt, Zofran
Advance diet as tolerated
With recent tooth infection and fever: check Bcx - NTD
Echo without significant valvular pathology
Telemetry with SR
Lipase WNL
#mild fusiform distention of the celiac artery
suspicious for nonspecific vessel inflammatory changes/vasculitis
ESR however WNL
Mildly elevated CRP
No other vascular findings
ANCA Ab and LUKASZ pending
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
#Transaminitis on baseline
#Bilirubinemia on baseline
#Elevated alk.phos chronic
#UC not in flare
#PSC
Patient declining any recent UC flare
followed by GI in [place] and Hepatology in [facility]
cont follow up upon d/c
GI consult
#Tooth infection
#mild leukocytosis
Previously failed after 5 days of Augmentin, but started to improve on Clinda
Reasonable to cont Ceftriaxone+Flagyl to complete 7 days and outpatient outpatient MFS advised
DVT ppx hep drip
Full code
I have spent at least 38min reviewing chart, test results, communication with consultants and providing direct patient care
Anticipated Discharge: Today
Subjective/Interval History
-
Date of Service: June 02, 2025
Objective Data
-
Labs:
Laboratory Results
06/02/25 06/02/25
06:30 15:30
WBC 14.9 H
Hgb 15.2
Hct 43.3
Plt Count 306
APTT 72.2 H Pending
Sodium 135
Potassium 3.7
Chloride 100
Carbon Dioxide 26
BUN 10
Creatinine 0.5 L
Glucose 115 H
Calcium 9.0
Total Bilirubin 2.9 H
AST 99 H
ALT 160 H
Alkaline Phosphatase 542 H
Vital Signs:
Vital Signs
Temp Pulse Resp BP Pulse Ox
98.4 F 104 20 156/107 96
06/02/25 07:05 06/02/25 07:05 06/02/25 07:05 06/02/25 07:05 06/02/25 07:05
I&O
06/01/25 06/02/25 06/03/25
06:59 06:59 06:59
Intake Total 720 / 720 480 / 480 240 / 240
Balance 720 / 720 480 / 480 240 / 240
Review of Systems
-
History Source: Patient
All other systems: Reviewed and negative
Abdomen/GI: Reports Abdominal Pain
Physical Exam
-
General: No Apparent Distress
Neuro: Awake, Alert, Oriented and AO x 3
Psych: Calm
--- NOTE | 2025-06-02 11:03 | W.DCSUMMARY ---
Discharge Summary
Discharge Data
Date of Admission: 05/31/25
Date of Discharge: 06/02/25
-
Pending Results: No
Hospital Course
49yo M with PSC, UC, HTN, biliary stent came with worsening nausea, vomiting, inability to keep food down for 2 days. Managed for splenic infarct. Also found mild fusiform distention of the celiac artery with perivascular inflammatory changes, that
were discussed with rheumatology and agreed that unlikely 2/2 vasculitis. However referral for rheum to be provided as ANCA, LUKASZ w/u sent. Normal ESR speaking against acute vasculitis. Able to tolerate food without vomiting. Switched to
cefdinir/flagyl to avoid clinda toxicity for tooth infection and patient will se MFS. tooth pain resolved at the day of D/C. Copay for ELiquis - $16 as pr CM. Medically stable for d/c after first Eliquis and scheduled Rocephin dose to home
I have spent at least 38min reviewing chart, test results, communication with consultants and providing direct patient care.
Patient was managed for:
#Nausea, vomiting, abdominal pain and LUQ tenderness most likely 2/2 splenic infarct
#mild fusiform distention of the celiac artery
#Transaminitis on baseline
#Bilirubinemia on baseline
#Elevated alk.phos chronic
#UC not in flare
#PSC
#Tooth infection
#mild leukocytosis
Discharge Plan
-
Patient Disposition: Home (Routine Discharge)
Discharge Diagnosis/Procedures: splenic infarct
Diet: Regular
Activity: As tolerated
Blood Work: CBC with family doctor in 1 week
Referrals:
Jesse Baker I., [Family Provider, Internal Medicine]
Roshni Perez MD [Active, Oncology] - in two to four weeks
Diane Beckett MD [Consulting Staff, Rheumatology] - in one to two weeks
Additional Discharge Medication Instructions: Take Eliquis 10mg BID for 13 doses, then switch to Eliquis 5mg BID until told to stop by your doctor
Prescriptions:
New
cefdinir 300 mg capsule
300 mg PO Q12H Qty: 10 0RF
metronidazole 500 mg tablet
500 mg PO TID Qty: 15 0RF
Eliquis 5 mg Tablet
10 mg PO BID Qty: 13 0RF
Eliquis 5 mg tablet
5 mg PO BID Qty: 60 0RF
Rx Instructions:
start in AM on 06/09/25
pantoprazole 40 mg tablet,delayed release (DR/EC)
40 mg PO DAILY Qty: 30 0RF
oxycodone 5 mg Tablet
5 mg PO Q4HPRN PRN (Reason: moderate-severe pain) Qty: 12 0RF
Lactobac/Bifidobac [Visbiome]
1 cap PO DAILY Qty: 30 0RF
Continued
ursodiol 300 MG capsule
300 mg PO BID
mesalamine 1.2 GM tablet,delayed release (DR/EC)
1.2 gm PO BID
ondansetron HCl 4 mg Tablet
4 mg PO Q8HPRN PRN (Reason: nausea)
amlodipine 5 mg Tablet
5 mg PO DAILY
Held
naltrexone 50 mg Tablet
50 mg PO DAILY
Hold Instructions: while on pain meds
Discontinued
amoxicillin-pot clavulanate [Augmentin] 875-125 mg Tablet
1 tab PO BID
Rx Instructions:
for 10 days starting 05/24/25
Discharge Orders:
Discharge Patient (As Directed); Ordered 06/02/25
Ordered By: Devante Gonzáles
Discharge Date and Time
Print Language: QATARI
[2025-06-02 11:11] LABS: Glucose - Point of Care 124 mg/dl (70-99)
[2025-06-02 11:35] VITALS: BP 160/98
[2025-06-02] MEDS: ROCEPHIN 2000 MG IV (12:12)
[2025-06-02] MEDS: ELIQUIS 10 MG PO (12:12)
[2025-06-02] MEDS: STERILE WATER FOR INJECTION 20 ML IV (12:13)
[2025-06-02] MEDS: FLUSH (NSS) 1 FLUSH IV (12:17)
[2025-06-03 01:02] LABS: ANA, IgG Reflex to HEp-2 None Detected (None Detected)
[2025-06-03 17:29] LABS: Serine Protease-3, IgG 4 AU/mL (0-19)
== END 2025-06-02 13:42 | disposition home or self-care (01) | DRG 815 ==
LOC: 4 WEST ACU 11:51
PROVIDERS: ADMITTING PHYSICIAN Internal Medicine; CONSULT PHYSICIAN Internal Medicine Gastroenterology; CONSULT PHYSICIAN Internal Medicine Hematology & Oncology; EMERGENCY PHYSICIAN Emergency Medicine; FAMILY PHYSICIAN Internal Medicine
DX: D73.5 Infarction of spleen (principal); K51.90 Ulcerative colitis, unspecified, without complications; K83.01 Primary sclerosing cholangitis; I10 Essential (primary) hypertension; K04.7 Periapical abscess without sinus; Z79.899 Other long term (current) drug therapy; Z87.442 Personal history of urinary calculi; N40.0 Benign prostatic hyperplasia without lower urinary tract symptoms
CPT/HCPCS: 74177; 76700; 80053; 82962; 83516; 83690; 83735; 85025; 85610; 85652; 85730; 86038; 86140; 87040; 93306; 96361; 96365; 96366; 96375; 96376; 99285; Q9967